=== PATIENT | male | born 1980 | race Caucasian/White ===

== ENCOUNTER 2016-07-07 15:42 | Observation (INO) | payer BC ==
[2016-07-07 15:57] VITALS: BMI 23.6
[2016-07-07 16:07] LABS: BASO # 0.1 K/uL (0.0-0.2); BASO % 0.9 % (0.0-2.0); EOS # 0.8 K/uL (0.0-0.7); EOS % 9.1 % (0.0-4.0); LYMPH # 1.3 K/uL (1.0-4.3); LYMPH % 15.7 % (20.0-40.0); MEAN CELL VOLUME 87.6 fL (80.0-94.0); MEAN CORPUSCULAR HEMOGLOBIN 28.8 pg (27.0-31.0); MEAN CORPUSCULAR HGB CONC 32.9 g/dL (33.0-37.0); MEAN PLATELET VOLUME 6.8 fL (7.2-11.7); MONO # 0.8 K/uL (0.0-0.8); MONO % 9.4 % (0.0-10.0); NRBC % 0.1 % (0.0-2.0); RED CELL DISTRIBUTION WIDTH 15.1 % (11.5-14.5); WHITE BLOOD COUNT 8.3 K/uL (4.8-10.8)
[2016-07-07 16:20] LABS: CHLORIDE 91 mmol/L (98-107); POTASSIUM 4.9 mmol/L (3.6-5.2); SODIUM 137 mmol/L (132-148)
[2016-07-07 16:22] LABS: BILIRUBIN,TOTAL 0.8 mg/dL (0.2-1.3)
[2016-07-07 16:23] LABS: ALB/GLOB RATIO 1.6 (1.0-2.1); ALKALINE PHOSPHATASE 196 U/L (38-126); ALT/SGPT 99 U/L (21-72); AST/SGOT 72 U/L (17-59); BLOOD UREA NITROGEN 78 mg/dL (9-20); CALCIUM 9.7 mg/dl (8.6-10.4); CARBON DIOXIDE 25 mmol/L (22-30); GLUCOSE,RANDOM 109 mg/dL (75-110); TOTAL PROTEIN 7.5 g/dL (6.3-8.3)
[2016-07-07 16:24] LABS: ALCOHOL SERUM < 10 mg/dl (0-10)
--- NOTE | 2016-07-07 17:23 | CT ---
PROCEDURE: CT HEAD WITHOUT CONTRAST. HISTORY: Collapsed and hit head COMPARISON: None available. TECHNIQUE: Axial computed tomography images were obtained through the head/brain without intravenous contrast. Radiation dose: Total exam DLP = 936 mGy-cm. This CT exam was performed using one or more of the following dose reduction techniques: Automated exposure control, adjustment of the mA and/or kV according to patient size, and/or use of iterative reconstruction technique. FINDINGS: HEMORRHAGE: No intracranial hemorrhage. BRAIN: No mass effect or edema. No atrophy or chronic microvascular ischemic changes. VENTRICLES: Unremarkable. No hydrocephalus. CALVARIUM: Unremarkable. PARANASAL SINUSES: Unremarkable as visualized. No significant inflammatory changes. MASTOID AIR CELLS: Unremarkable as visualized. No inflammatory changes. OTHER FINDINGS: None. IMPRESSION: No acute intracranial abnormality. If focal neurologic deficit persists, consider MRI.
[2016-07-07 17:29] LABS: GFR AFRICAN-AMERICAN 3
--- NOTE | 2016-07-07 17:48 | CT ---
CT chest History: Chest pain. Comparison: None available. Technique: Multiple contiguous axial images were performed through the chest without the use of intravenous contrast. Subsequently, sagittal coronal reformatted images were obtained. This CT exam was performed using one or more of the following dose reduction techniques: Automated exposure control, adjustment of the mA and/or kV according to patient size, and/or use of iterative reconstruction technique. Findings: Right lung: Apical pleural thickening. 5 millimeter pulmonary nodule with some questionable central aeration in the right lung apex seen on series 3, image 23. Alternatively, this may represent some confluence of vessels. Clinical correlation. Prominent posterior atelectasis. Left lung: Apical pleural thickening. Posterior atelectasis. Mild lingular atelectasis. Few mild septations seen within the mid trachea, nonspecific. No significant axillary adenopathy. Heterogeneity of the thyroid. No significant mediastinal or hilar lymph nodes. No pleural or pericardial effusion. Free intraperitoneal air seen within the upper abdomen consistent with known peritoneal dialysis. Abdominal ascites. Nodular thickening of the adrenal glands with calcifications. Lobulated calcifications within left kidney which is somewhat diminutive. For example an upper pole calcification measures 8 millimeters. Additional midpole calcification measures 2 millimeters. Degenerative changes in the spine. Bilateral gynecomastia noted. Impression: 5 millimeter pulmonary nodule with some questionable central aeration in the right lung apex seen on series 3, image 23. Alternatively, this may represent some confluence of vessels. Clinical correlation. Free intraperitoneal air seen within the upper abdomen consistent with known peritoneal dialysis. Abdominal ascites. Nodular thickening of the adrenal glands with calcifications. Lobulated calcifications within left kidney which is somewhat diminutive. For example an upper pole calcification measures 8 millimeters. Additional midpole calcification measures 2 millimeters. Bilateral gynecomastia noted.
--- NOTE | 2016-07-07 17:54 | RAD ---
HISTORY: Chest pain s/p CPR COMPARISON: No prior. FINDINGS: LUNGS: Mild venous congestion. PLEURA: No significant pleural effusion identified, no pneumothorax apparent. CARDIOVASCULAR: Normal. OSSEOUS STRUCTURES: No significant abnormalities. VISUALIZED UPPER ABDOMEN: Normal. OTHER FINDINGS: None. IMPRESSION: Mild venous congestion.
[2016-07-07] MEDS ORDERED: Acetaminophen IV 1,000 MG in Premixed IV 1 EA IV ONE (17:56)
--- NOTE | 2016-07-07 18:02 | C.PDOC ---
History Of Present Illness Pt states he crushed tabs of opiate pain pills and snorted them. He was then witnessed to collapse by and EMS were called. BLS found him pulseless and started CPR was started. ALS found him to be in PEA and pinpoint pupils. They gave him 1mg of epinephrine and 2mg of Narcan IV with good response. Upon arrival to the ED, pt is AAOx3. Time Seen by Provider: 07/07/16 15:51 Chief Complaint (Nursing): Cardiac Arrest History Per: Patient, EMS Circumstances: Brought To ED By EMS Arrest Witnessed By: Family () CPR Initiated Prior To MD Arrival?: Yes Down-Time Before ACLS: Mins (few) Treatment Initiated Prior To MD Arrival: Yes: CPR, BVM Ventilations, ACLS Medication Initiation, IV Access Medications Given Prior To MD Arrival: Yes: Epinephrine, Other (Narcan) Past Medical History Reviewed: Historical Data, Nursing Documentation, Vital Signs Vital Signs: Last Vital Signs Temp 97.3 F L 07/07/16 15:49 Pulse 82 07/07/16 18:03 Resp 16 07/07/16 18:03 BP 149/101 H 07/07/16 18:03 Pulse Ox 100 07/07/16 18:10 - Medical History PMH: HTN, End Stage Renal Disease (on peritoneal dialysis) Family History: States: Unknown Family Hx - Social History Hx Alcohol Use: No Hx Substance Use: No - Immunization History Hx Tetanus Toxoid Vaccination: No Hx Influenza Vaccination: No Hx Pneumococcal Vaccination: No Review Of Systems Except As Marked, All Systems Reviewed And Found Negative. Constitutional: Negative for: Fever, Weakness Cardiovascular: Positive for: Chest Pain Respiratory: Negative for: Hemoptysis Gastrointestinal: Negative for: Vomiting, Abdominal Pain Musculoskeletal: Negative for: Neck Pain, Back Pain, Leg Pain Neurological: Negative for: Weakness, Numbness, Seizures, Altered Mental Status , Headache Physical Exam - Physical Exam Appears: No Acute Distress, Chronically Ill Skin: Normal Color, Warm, Dry Head: Swelling (scalp hematoma), No Laceration Eye(s): bilateral: PERRL, EOMI Neck: Normal ROM, No Midline Cervical Tenderness, No Step Off Deformity, Supple Chest: Symmetrical, No Deformity, Tenderness, No Subcutaneous Emphysema Cardiovascular: Rhythm Regular Respiratory: Normal Breath Sounds, No Accessory Muscle Use Gastrointestinal/Abdominal: Soft, No Tenderness, Other (PD dialysis tube in place) Back: No CVA Tenderness, No Vertebral Tenderness Extremity: Normal ROM, No Deformity Neurological/Psych: Oriented x3, Normal Motor, Normal Sensation ED Course And Treatment - Laboratory Results Result Diagrams: 07/07/16 16:03 07/07/16 16:03 Lab Interpretation: Abnormal ECG: Interpreted By Me, Viewed By Me ECG Rhythm: Sinus Rhythm, Nonspecific Changes ECG Interpretation: No Acute Changes Rate From EC O2 Sat by Pulse Oximetry: 100 Pulse Ox Interpretation: Normal - Radiology CXR: Viewed By Me, Read By Radiologist CXR Interpretation: Yes: No Acute Disease - CT Scan/US CT head Other Rad Studies (CT/US): Read By Radiologist, Radiology Report Reviewed CT/US Interpretation: IMPRESSION: No acute intracranial abnormality. CT chest Other Rad Studies (CT/US): Read By Radiologist, Radiology Report Reviewed CT/US Interpretation: Impression: 5 millimeter pulmonary nodule with some questionable central aeration in the right lung apex seen on series 3, image 23. Alternatively, this may represent some confluence of vessels. Clinical correlation. Free intraperitoneal air seen within the upper abdomen consistent with known peritoneal dialysis. Abdominal ascites. Nodular thickening of the adrenal glands with calcifications. Lobulated calcifications within left kidney which is somewhat diminutive. For example an upper pole calcification measures 8 millimeters. Additional midpole calcification measures 2 millimeters. Bilateral gynecomastia noted. Progress Note: Pt remained awake and alert throughout ED stay. - Physician Consult Information Physician Contacted: Karyn Braden (Renal) Outcome Of Conversation: She will give peritoneal dialysis orders once on the floor. Disposition Discussed With : Brandee Alonzo Comment: He accepted pt on his service. Doctor Will See Patient In The: Hospital Counseled Patient/Family Regarding: Studies Performed, Diagnosis - Disposition Disposition: ELOPEMENT - ER ONLY Disposition Time: 18:20 Condition: FAIR - Clinical Impression Clinical Impression: Opioid overdose, Observed collapse due to cardiac arrest, ESRD on peritoneal dialysis
--- NOTE | 2016-07-07 20:12 | CP.PCM.HP ---
History of Present Illness - History of Present Illness History of Present Illness: COMPREHENSIVE HISTORY & PHYSICAL EXAM HPI PT. ADMITTED AFTER CARDIAC CARREST AFTER SNORTING 2 PERCOCETS CRUSHED. CPR WAS DONE WITH EPI AND NARCAN. PT. WOKE UP WITH FULL CEREBRAL FUNCTION. PT. CURRENTLY C/O ATYPICAL CP SEC TO CHEST COMPRESSION. 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 NO OTHER CARDIAC DISEASES IN PAST PAST HIST. PERSONAL HIST: Smoking. N Alcohol. N Allergy N Travel_- . FAMILY HIST : ROS : Constitutional: Negative for weight change, chills, night sweats, fatigue and usage of assist device. Eyes: Negative for redness, swelling, itching, discharge, vision changes, blurry vision, double vision, glaucoma, cataracts, Ears: Negative for hearing loss, ringing, , tinnitus, vertigo Nose: Negative for rhinorrhea, stuffiness, sniffing, itching, postnasal drip, discoloration, nasal congestion and epistaxis. Throat: Negative for throat clearing, sore throat, hoarseness, difficulty swallowing and difficulty speaking. Respiratory: Negative for cough, chest tightness, sputum or phlegm, chronic cough, hemoptysis, wheezing, snoring at night, pleuritic chest pain and daytime somnolence. Cardiovascular: POS for chest pain, NO palpitations, orthopnea, PND, Edema of legs, leg cramps, angina, claudication, , irregular heartbeat, Neurology: Negative for irritability, muscle weakness, numbness and tingling, seizures, tremors, migraines, slurred speech, syncope, memory loss, mood changes , recurrent headaches Gastrointestinal: Negative for difficulty swallowing, diarrhea, constipation, black stools, rectal bleeding, nausea, flatulence, reflux, poor appetite, changes in bowel habits, abdominal pain Genitourinary: Negative for frequent urination, hematuria, discharge, incontinence, urinary retention, frequent UTI, Psychiatric: Negative for depression, anxiety/panic, suicidal tendencies, Musculoskeletal: Negative for swollen joints, back pain, , neck pain, morning stiffness of joints, . Skin: Negative for rash, ulcers, itching, dry skin and pigmented lesions. P/E: Constitutional: Appears stated age and in no apparent distress. Head: Normocephalic. Ears: External ear canals patent without inflammation. Tympanic membranes intact with normal light reflex and landmark. Eyes: Pupils are central, bilaterally equal, symmetrical and reacts to light with normal movements and no icterus or pallor. Nose: External nares are patent. Mucosa is pink Mouth-Throat: Good general appearance and condition. No post-pharyngeal/oropharyngeal erythema and tonsillar hypertrophy. Good dental hygiene. Neck-Lymphatic: Neck is supple with normal ROM, no thyromegaly, lymph nodes or masses. JVD is normal with no carotid bruit. Lungs: Clear to percussion and auscultation with bilateral normal air entry. Cardiovascular: S1 and S2 are normal with no murmurs, gallops and rub. GI Exam: No hepatomegaly. Abdomen is soft and non-tender. No Organomegaly , masses or hernias are evident and bowel sounds are normal and active. Neurology: Higher function and all cranial nerves intact, with no gross motor or sensory deficit. Superficial and deep reflexes are normal with downwards planters. No cerebellar deficit with normal gait. Musculoskeletal: No tender spots with normal curvature of the spine with no swelling or restricted ROM of the small and large joints. Extremities: Homans sign absent. Intact pulses with no pitting edema, calf tenderness or skin color changes. Skin: No rash, eruptions or abnormal skin pigmentation LAB/RADIOLOGY: ASSESMENT : CRADIAC ARREST SEC TO NRCOTIC OVERDOSE WITH FULL RECOVERY PD SEC CRF SEC TO AMYLOIDOSIS PLAN: Present on Admission - Present on Admission Any Indicators Present on Admission: No Past Patient History - Infectious Disease Hx of Infectious Diseases: None - Past Social History Smoking Status: Never Smoked - CARDIAC Hx Hypertension: Yes - RENAL Hx Dialysis: Yes Type of Dialysis Access: Peritoneal Dialysis Date of Last Dialysis Treatment: 07/06/16 - PSYCHIATRIC Hx Substance Use: No Meds Allergies/Adverse Reactions: Allergies Allergy/AdvReac Type Severity Reaction Status Date / Time No Known Allergies Allergy Verified 07/07/16 15:53 Results - Vital Signs Recent Vital Signs: Last Vital Signs Temp 97.3 F L 07/07/16 15:49 Pulse 82 07/07/16 18:03 Resp 16 07/07/16 18:03 BP 149/101 H 07/07/16 18:03 Pulse Ox 100 07/07/16 18:25 - Labs Result Diagrams: 07/08/16 07:15 07/08/16 07:15
[2016-07-08 07:27] LABS: BASO # 0.1 K/uL (0.0-0.2); BASO % 1.1 % (0.0-2.0); EOS # 0.6 K/uL (0.0-0.7); EOS % 7.5 % (0.0-4.0); HEMATOCRIT 28.7 % (35.0-51.0); LYMPH # 1.3 K/uL (1.0-4.3); LYMPH % 15.9 % (20.0-40.0); MEAN CORPUSCULAR HEMOGLOBIN 28.9 pg (27.0-31.0); MEAN CORPUSCULAR HGB CONC 33.2 g/dL (33.0-37.0); MEAN PLATELET VOLUME 6.7 fL (7.2-11.7); MONO # 0.9 K/uL (0.0-0.8); MONO % 10.7 % (0.0-10.0); RED CELL DISTRIBUTION WIDTH 15.1 % (11.5-14.5); WHITE BLOOD COUNT 8.4 K/uL (4.8-10.8)
[2016-07-08 07:45] LABS: POTASSIUM 4.3 mmol/L (3.6-5.2)
[2016-07-08 07:47] LABS: BILIRUBIN,TOTAL 0.7 mg/dL (0.2-1.3)
[2016-07-08 07:48] LABS: ALB/GLOB RATIO 1.4 (1.0-2.1); TOTAL PROTEIN 6.1 g/dL (6.3-8.3)
[2016-07-08 07:49] LABS: CALCIUM 9.2 mg/dl (8.6-10.4)
[2016-07-08] MEDS: Pantoprazole 20 mg EC Tab PO SCH (10:51)
[2016-07-08] MEDS: Multivitamin Vitamin B Complex (Nephro-Vite) Tab PO SCH (10:51)
[2016-07-08] MEDS: NIFEdipine 90 mg ER Tab PO SCH (11:00)
--- NOTE | 2016-07-08 13:55 | CP.PCM.CON ---
History of Present Illness - History of Present Illness History of Present Illness: pt is a 35 yo male with HTN, ESRD on PD who was brought to ER by EMS after cardiac arrest. Pt states he crushed tabs of opiate pain pills and snorted them. He was then witnessed to collapse by and EMS were called. BLS found him pulseless and started CPR was started. ALS found him to be in PEA and pinpoint pupils. They gave him 1mg of epinephrine and 2mg of Narcan IV with good response. Upon arrival to the ED, pt was AAOx3. He was admitted for observation renal consult requested for PD PMHx- ESRD on PD, HTN PSHx- pd catheter placement Social- no smoking, alcohol or drugs Family - no family history of kidney disease Review of Systems - Review of Systems All systems: reviewed and no additional remarkable complaints except Review of Systems: chest soreness Past Patient History - Infectious Disease Hx of Infectious Diseases: None - Past Medical History & Family History Past Medical History?: Yes - Past Social History Smoking Status: Never Smoked - CARDIAC Hx Cardiac Disorders: Yes Hx Hypertension: Yes - PULMONARY Hx Respiratory Disorders: No - NEUROLOGICAL Hx Neurological Disorder: No - HEENT Hx HEENT Problems: No Other/Comment: Wears Eyeglasses and or Contact lenses - RENAL Hx Chronic Kidney Disease: Yes Hx Dialysis: Yes Type of Dialysis Access: Peritoneal Dialysis Date of Last Dialysis Treatment: 07/06/16 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 - ANESTHESIA Hx Anesthesia: Yes Hx Anesthesia Reactions: No Hx Malignant Hyperthermia: No Has any member of the family had a problem w/ anesthesia?: No Meds Allergies/Adverse Reactions: Allergies Allergy/AdvReac Type Severity Reaction Status Date / Time No Known Allergies Allergy Verified 07/07/16 15:53 - Medications Medications: Current Medications Amitriptyline HCl (Elavil) 25 mg PO DAILY [facility] Last Admin: 07/08/16 10:00 Dose: Not Given Carvedilol (Coreg) 25 mg PO BID [facility] Last Admin: 07/08/16 10:00 Dose: Not Given Clonidine HCl (Catapres) 0.2 mg PO DAILY [facility] Last Admin: 07/08/16 10:00 Dose: Not Given Gabapentin (Neurontin) 100 mg PO DAILY [facility] Last Admin: 07/08/16 10:00 Dose: Not Given Losartan Potassium (Cozaar) 100 mg PO DAILY [facility] Last Admin: 07/08/16 10:52 Dose: 100 mg Nifedipine (Procardia Xl) 90 mg PO DAILY [facility] Last Admin: 07/08/16 11:00 Dose: 90 mg Pantoprazole Sodium (Protonix Ec Tab) 20 mg PO DAILY [facility] Last Admin: 07/08/16 10:51 Dose: 20 mg Sevelamer Carbonate (Renvela) 2,400 mg PO TIDAC [facility] Last Admin: 07/08/16 10:51 Dose: 2,400 mg Tramadol HCl (Ultram) 50 mg PO Q8H PRN PRN Reason: pain Last Admin: 07/08/16 10:52 Dose: 50 mg Vitamin B Complex/Vit C/Folic Acid (Nephro-Phil) 1 tab PO DAILY [facility] Last Admin: 07/08/16 10:51 Dose: 1 tab Physical Exam - Constitutional Appears: Well, Non-toxic - Head Exam Head Exam: ATRAUMATIC, NORMAL INSPECTION - Eye Exam Eye Exam: EOMI, PERRL - ENT Exam ENT Exam: Mucous Membranes Moist - Respiratory Exam Respiratory Exam: Clear to Auscultation Bilateral. absent: Rhonchi, Wheezes - Cardiovascular Exam Cardiovascular Exam: REGULAR RHYTHM, +S1, +S2 - GI/Abdominal Exam GI & Abdominal Exam: Normal Bowel Sounds, Soft. absent: Tenderness Additional comments: pd catheter - Extremities Exam Extremities exam: Negative for: calf tenderness, pedal edema - Neurological Exam Neurological exam: Alert, Oriented x3 - Psychiatric Exam Psychiatric exam: Normal Affect, Normal Mood - Skin Skin Exam: Dry, Warm Results - Vital Signs Recent Vital Signs: Last Vital Signs Temp 98.3 F 07/08/16 11:45 Pulse 70 07/08/16 11:45 Resp 20 07/08/16 11:45 BP 143/83 07/08/16 11:45 Pulse Ox 99 07/08/16 11:45 - Labs Result Diagrams: 07/08/16 07:15 07/08/16 07:15 Labs: Laboratory Results - last 24 hr 07/08/16 07:15 WBC 8.4 RBC 3.30 L Hgb 9.5 L Hct 28.7 L MCV 87.0 MCH 28.9 MCHC 33.2 RDW 15.1 H Plt Count 177 MPV 6.7 L Neut % (Auto) 64.8 Lymph % (Auto) 15.9 L [place] % (Auto) 10.7 H Eos % (Auto) 7.5 H Baso % (Auto) 1.1 Neut # 5.5 Lymph # 1.3 [place] # 0.9 H Eos # 0.6 Baso # 0.1 Sodium 136 Potassium 4.3 Chloride 89 L Carbon Dioxide 26 Anion Gap 25 H BUN 84 H Creatinine 20.4 H* Est GFR ( Amer) 3 Est GFR (Non-Af Amer) 3 Random Glucose 89 Calcium 9.2 Total Bilirubin 0.7 AST 40 ALT 75 H D Alkaline Phosphatase 161 H Total Protein 6.1 L Albumin 3.6 Globulin 2.5 Albumin/Globulin Ratio 1.4 Assessment & Plan (1) ESRD on peritoneal dialysis Status: Acute (2) Observed collapse due to cardiac arrest Status: Acute (3) Opioid overdose Status: Acute (4) Hypertension Status: Acute - Assessment and Plan (Free Text) Plan: continue PD pt uses cycler at home on manual pD here in the hospital no signs or symptoms of peritonitis continue antihypertensives stable renal menjivar
--- NOTE | 2016-07-08 14:12 | CP.PCM.PN ---
Subjective - Date & Time of Evaluation Date of Evaluation: 07/08/16 Time of Evaluation: 14:11 - Subjective Subjective: PD STARTED ATYPICAL CP RX. TRAMADOL CARDIAC/NEURO FUNCTION INTAKE Objective - Vital Signs/Intake and Output Vital Signs (last 24 hours): Temp Pulse Resp BP Pulse Ox 98.3 F 70 20 143/83 99 07/08/16 11:45 07/08/16 11:45 07/08/16 11:45 07/08/16 11:45 07/08/16 11:45 - Medications Medications: Current Medications Amitriptyline HCl (Elavil) 25 mg PO DAILY [facility] Last Admin: 07/08/16 10:00 Dose: Not Given Carvedilol (Coreg) 25 mg PO BID [facility] Last Admin: 07/08/16 10:00 Dose: Not Given Clonidine HCl (Catapres) 0.2 mg PO DAILY [facility] Last Admin: 07/08/16 10:00 Dose: Not Given Gabapentin (Neurontin) 100 mg PO DAILY [facility] Last Admin: 07/08/16 10:00 Dose: Not Given Losartan Potassium (Cozaar) 100 mg PO DAILY [facility] Last Admin: 07/08/16 10:52 Dose: 100 mg Nifedipine (Procardia Xl) 90 mg PO DAILY [facility] Last Admin: 07/08/16 11:00 Dose: 90 mg Pantoprazole Sodium (Protonix Ec Tab) 20 mg PO DAILY [facility] Last Admin: 07/08/16 10:51 Dose: 20 mg Sevelamer Carbonate (Renvela) 2,400 mg PO TIDAC [facility] Last Admin: 07/08/16 10:51 Dose: 2,400 mg Tramadol HCl (Ultram) 50 mg PO Q8H PRN PRN Reason: pain Last Admin: 07/08/16 10:52 Dose: 50 mg Vitamin B Complex/Vit C/Folic Acid (Nephro-Phil) 1 tab PO DAILY [facility] Last Admin: 07/08/16 10:51 Dose: 1 tab - Labs Labs: 07/08/16 07:15 07/08/16 07:15 PT 11.7 SECONDS (9.7-12.2) 07/07/16 16:03 INR 1.0 07/07/16 16:03 APTT 35 SECONDS (21-34) H 07/07/16 16:03
[2016-07-09] MEDS: Multivitamin Vitamin B Complex (Nephro-Vite) Tab PO SCH (10:32)
[2016-07-09] MEDS: NIFEdipine 90 mg ER Tab PO SCH (10:33)
[2016-07-09] MEDS: Pantoprazole 20 mg EC Tab PO SCH (10:34)
--- NOTE | 2016-07-09 11:01 | CP.PCM.PN ---
Subjective - Date & Time of Evaluation Date of Evaluation: 07/09/16 Time of Evaluation: 10:58 - Subjective Subjective: pt is a 35 yo male with HTN, ESRD on PD who was brought to ER by EMS after cardiac arrest. Pt states he crushed tabs of opiate pain pills and snorted them. He was then witnessed to collapse by and EMS were called. BLS found him pulseless and started CPR was started. ALS found him to be in PEA and pinpoint pupils. They gave him 1mg of epinephrine and 2mg of Narcan IV with good response. Upon arrival to the ED, pt was AAOx3. He was admitted for observation renal consult requested for PD PMHx- ESRD on PD, HTN PSHx- pd catheter placement Social- no smoking, alcohol or drugs Family - no family history of kidney disease Doing PD well; claims did 14L exchanges / 24hrs Creat >20mg %- pt needs extra exchanges Neg balance around 1400ml BP stable Reviewed labs c/o chest pains from compressions Otherwise no SOB, N, V, diarrhea, F, chills Objective - Vital Signs/Intake and Output Vital Signs (last 24 hours): Temp Pulse Resp BP Pulse Ox 97.8 F 78 20 132/78 96 07/09/16 10:15 07/09/16 10:15 07/09/16 10:15 07/09/16 10:15 07/09/16 10:15 Intake and Output: 07/09/16 07/09/16 06:59 18:59 Intake Total 600 Balance 600 - Medications Medications: Current Medications Amitriptyline HCl (Elavil) 25 mg PO HS [facility] Carvedilol (Coreg) 25 mg PO BID [facility] Last Admin: 07/08/16 17:38 Dose: 25 mg Clonidine HCl (Catapres) 0.2 mg PO HS [facility] Gabapentin (Neurontin) 100 mg PO DAILY [facility] Last Admin: 07/08/16 10:00 Dose: Not Given Losartan Potassium (Cozaar) 100 mg PO DAILY [facility] Last Admin: 07/09/16 10:34 Dose: 100 mg Nifedipine (Procardia Xl) 90 mg PO DAILY [facility] Last Admin: 07/09/16 10:33 Dose: 90 mg Pantoprazole Sodium (Protonix Ec Tab) 20 mg PO DAILY [facility] Last Admin: 07/09/16 10:34 Dose: 20 mg Sevelamer Carbonate (Renvela) 2,400 mg PO TIDAC [facility] Last Admin: 07/09/16 10:33 Dose: 2,400 mg Tramadol HCl (Ultram) 50 mg PO Q8H PRN PRN Reason: pain Last Admin: 07/09/16 10:32 Dose: 50 mg Vitamin B Complex/Vit C/Folic Acid (Nephro-Phil) 1 tab PO DAILY [facility] Last Admin: 07/09/16 10:32 Dose: 1 tab - Labs Labs: 07/08/16 07:15 07/08/16 07:15 PT 11.7 SECONDS (9.7-12.2) 07/07/16 16:03 INR 1.0 07/07/16 16:03 APTT 35 SECONDS (21-34) H 07/07/16 16:03 - Constitutional Appears: No Acute Distress, Chronically Ill - Head Exam Head Exam: ATRAUMATIC, NORMAL INSPECTION - Eye Exam Eye Exam: EOMI, Normal appearance - Neck Exam Neck Exam: Normal Inspection. absent: Tenderness - Respiratory Exam Respiratory Exam: Clear to Ausculation Bilateral, NORMAL BREATHING PATTERN - Cardiovascular Exam Cardiovascular Exam: REGULAR RHYTHM, +S1 - GI/Abdominal Exam GI & Abdominal Exam: Soft. absent: Tenderness - Extremities Exam Extremities Exam: Normal Inspection. absent: Tenderness - Neurological Exam Neurological Exam: Alert, CN II-XII Intact - Skin Skin Exam: Dry, Warm Assessment and Plan (1) ESRD on peritoneal dialysis Status: Acute (2) Hypertension Status: Acute (3) Observed collapse due to cardiac arrest Status: Acute (4) Opioid overdose Status: Acute - Assessment and Plan (Free Text) Plan: continue same PD Monitor BP Add ESAs
--- NOTE | 2016-07-09 11:41 | CARD ---
APPROVED REPORT EKG Measurement Heart [id number] <Conclusion> Normal sinus rhythm Normal ECG
--- NOTE | 2016-07-09 13:46 | CP.PCM.DIS ---
Provider - Provider Date of Admission: 07/07/16 18:25 Attending physician: Brandee Alonzo MD Time Spent in preparation of Discharge (in minutes): 30 Hospital Course - Lab Results Lab Results: Most Recent Lab Values WBC 8.4 K/uL (4.8-10.8) 07/08/16 07:15 RBC 3.30 Mil/uL (4.40-5.90) L 07/08/16 07:15 Hgb 9.5 g/dL (12.0-18.0) L 07/08/16 07:15 Hct 28.7 % (35.0-51.0) L 07/08/16 07:15 MCV 87.0 fL (80.0-94.0) 07/08/16 07:15 MCH 28.9 pg (27.0-31.0) 07/08/16 07:15 MCHC 33.2 g/dL (33.0-37.0) 07/08/16 07:15 RDW 15.1 % (11.5-14.5) H 07/08/16 07:15 Plt Count 177 K/uL (130-400) 07/08/16 07:15 MPV 6.7 fL (7.2-11.7) L 07/08/16 07:15 Neut % (Auto) 64.8 % (50.0-75.0) 07/08/16 07:15 Lymph % (Auto) 15.9 % (20.0-40.0) L 07/08/16 07:15 Gosper % (Auto) 10.7 % (0.0-10.0) H 07/08/16 07:15 Eos % (Auto) 7.5 % (0.0-4.0) H 07/08/16 07:15 Baso % (Auto) 1.1 % (0.0-2.0) 07/08/16 07:15 Neut # 5.5 K/uL (1.8-7.0) 07/08/16 07:15 Lymph # 1.3 K/uL (1.0-4.3) 07/08/16 07:15 Gosper # 0.9 K/uL (0.0-0.8) H 07/08/16 07:15 Eos # 0.6 K/uL (0.0-0.7) 07/08/16 07:15 Baso # 0.1 K/uL (0.0-0.2) 07/08/16 07:15 PT 11.7 SECONDS (9.7-12.2) 07/07/16 16:03 INR 1.0 07/07/16 16:03 APTT 35 SECONDS (21-34) H 07/07/16 16:03 Sodium 136 mmol/L (132-148) 07/08/16 07:15 Potassium 4.3 mmol/L (3.6-5.2) 07/08/16 07:15 Chloride 89 mmol/L (98-107) L 07/08/16 07:15 Carbon Dioxide 26 mmol/L (22-30) 07/08/16 07:15 Anion Gap 25 (10-20) H 07/08/16 07:15 BUN 84 mg/dL (9-20) H 07/08/16 07:15 Creatinine 20.4 MG/DL (0.8-1.5) H* 07/08/16 07:15 Est GFR ( Amer) 3 07/08/16 07:15 Est GFR (Non-Af Amer) 3 07/08/16 07:15 Random Glucose 89 mg/dL (75-110) 07/08/16 07:15 Calcium 9.2 mg/dl (8.6-10.4) 07/08/16 07:15 Total Bilirubin 0.7 mg/dL (0.2-1.3) 07/08/16 07:15 AST 40 U/L (17-59) 07/08/16 07:15 ALT 75 U/L (21-72) H D 07/08/16 07:15 Alkaline Phosphatase 161 U/L (38-126) H 07/08/16 07:15 Total Creatine Kinase 43 U/L (55-170) L 07/09/16 07:30 CK-MB (Mass) 0.40 ng/mL (0.0-3.38) 07/09/16 07:30 Troponin I, Quant 0.0330 ng/mL (0.00-0.120) 07/09/16 07:30 Total Protein 6.1 g/dL (6.3-8.3) L 07/08/16 07:15 Albumin 3.6 g/dL (3.5-5.0) 07/08/16 07:15 Globulin 2.5 gm/dL (2.2-3.9) 07/08/16 07:15 Albumin/Globulin Ratio 1.4 (1.0-2.1) 07/08/16 07:15 Alcohol, Quantitative < 10 mg/dl (0-10) 07/07/16 16:03 - Hospital Course Hospital Course: PT. ADMITTED AFTER CARDIAC CARREST AFTER SNORTING 2 PERCOCETS CRUSHED. CPR WAS DONE WITH EPI AND NARCAN. PT. WOKE UP WITH FULL CEREBRAL FUNCTION. PT. CURRENTLY C/O ATYPICAL CP SEC TO CHEST COMPRESSION. 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 NO OTHER CARDIAC DISEASES IN PAST PT WAS OBSERVED IN HOSP. THERE WAS NO FURTHER ANY [id number] PROBLEMS HAD CP SEC TO CHEST COMPRESSION TNI WERE NEG PT D/C HOME COUNSELLED TO F/U WITH PSYCH Discharge Exam - Head Exam Head Exam: ATRAUMATIC, NORMAL INSPECTION Discharge Plan - Follow Up Plan Condition: GOOD Disposition: HOME/ ROUTINE
--- NOTE | 2016-07-09 18:43 | CARD ---
APPROVED REPORT EKG Measurement Heart [id number] <Conclusion> Normal sinus rhythm Nonspecific ST/T changes inferior leads
[2016-07-10] MEDS: NIFEdipine 90 mg ER Tab PO SCH (09:30)
[2016-07-10] MEDS: Multivitamin Vitamin B Complex (Nephro-Vite) Tab PO SCH (09:31)
[2016-07-10] MEDS ORDERED: Docusate-Senna 50 mg-8.6 mg Tab PO SCH (10:00)
[2016-07-10] MEDS: Pantoprazole 20 mg EC Tab PO SCH (11:20)
--- NOTE | 2016-07-10 11:40 | CP.PCM.PN ---
Subjective - Date & Time of Evaluation Date of Evaluation: 07/10/16 Time of Evaluation: 11:37 - Subjective Subjective: PD going well BP controlled No new chemistries Possible discharge noted Objective - Vital Signs/Intake and Output Vital Signs (last 24 hours): Temp Pulse Resp BP Pulse Ox 98.1 F 71 20 146/81 97 07/10/16 07:00 07/10/16 07:00 07/10/16 07:00 07/10/16 09:30 07/10/16 07:00 - Medications Medications: Current Medications Amitriptyline HCl (Elavil) 25 mg PO [facility] Last Admin: 07/09/16 22:24 Dose: 25 mg Carvedilol (Coreg) 25 mg PO BID [facility] Last Admin: 07/10/16 09:30 Dose: 25 mg Clonidine HCl (Catapres) 0.2 mg PO [facility] Last Admin: 07/09/16 22:24 Dose: 0.2 mg Docusate Sodium (Colace) 100 mg PO DAILY [facility] Last Admin: 07/10/16 11:16 Dose: Not Given Epoetin Serjio (Procrit) 4,000 unit [facility] Gabapentin (Neurontin) 100 mg PO DAILY [facility] Last Admin: 07/10/16 10:54 Dose: 100 mg Losartan Potassium (Cozaar) 100 mg PO DAILY [facility] Last Admin: 07/10/16 09:31 Dose: 100 mg Nifedipine (Procardia Xl) 90 mg PO DAILY [facility] Last Admin: 07/10/16 09:30 Dose: 90 mg Pantoprazole Sodium (Protonix Ec Tab) 20 mg PO DAILY [facility] Last Admin: 07/10/16 11:20 Dose: 20 mg Senna/Docusate Sodium (Senokot S 50 Mg-8.6 Mg) 1 tab PO DAILY [facility] Last Admin: 07/10/16 11:20 Dose: Not Given Sevelamer Carbonate (Renvela) 2,400 mg PO TIDAC [facility] Last Admin: 07/10/16 08:39 Dose: 2,400 mg Tramadol HCl (Ultram) 50 mg PO Q8H PRN PRN Reason: pain Last Admin: 07/09/16 10:32 Dose: 50 mg Vitamin B Complex/Vit C/Folic Acid (Nephro-Phil) 1 tab PO DAILY [facility] Last Admin: 07/10/16 09:31 Dose: 1 tab - Labs Labs: PT 11.7 SECONDS (9.7-12.2) 07/07/16 16:03 INR 1.0 07/07/16 16:03 APTT 35 SECONDS (21-34) H 07/07/16 16:03 - Constitutional Appears: No Acute Distress, Chronically Ill - Head Exam Head Exam: ATRAUMATIC, NORMAL INSPECTION - Eye Exam Eye Exam: EOMI, Normal appearance - Neck Exam Neck Exam: Normal Inspection. absent: Tenderness - Respiratory Exam Respiratory Exam: Clear to Ausculation Bilateral, NORMAL BREATHING PATTERN - Cardiovascular Exam Cardiovascular Exam: REGULAR RHYTHM, +S1 - GI/Abdominal Exam GI & Abdominal Exam: Soft. absent: Tenderness - Extremities Exam Extremities Exam: Normal Inspection. absent: Pedal Edema - Neurological Exam Neurological Exam: Alert, CN II-XII Intact - Skin Skin Exam: Dry, Warm Assessment and Plan (1) ESRD on peritoneal dialysis Status: Acute (2) Hypertension Status: Acute (3) Observed collapse due to cardiac arrest Status: Acute (4) Opioid overdose Status: Acute - Assessment and Plan (Free Text) Plan: Same PD Patient will see private garment finisher upon discharge
--- NOTE | 2016-07-10 13:31 | CP.PCM.PN ---
Subjective - Date & Time of Evaluation Date of Evaluation: 07/10/16 Time of Evaluation: 13:29 - Subjective Subjective: DISCHARGE ON HOLD PT IS UNABLE TO WALK TO BATHROOM PT EVAL DONE D/W AT LENGTH PT'S CARE MAY NEED [facility] PD WORKING WELL Objective - Vital Signs/Intake and Output Vital Signs (last 24 hours): Temp Pulse Resp BP Pulse Ox 98.1 F 67 20 146/81 94 L 07/10/16 07:00 07/10/16 12:01 07/10/16 07:00 07/10/16 09:30 07/10/16 12:01 - Medications Medications: Current Medications Amitriptyline HCl (Elavil) 25 mg PO HS [facility] Last Admin: 07/09/16 22:24 Dose: 25 mg Carvedilol (Coreg) 25 mg PO BID [facility] Last Admin: 07/10/16 09:30 Dose: 25 mg Clonidine HCl (Catapres) 0.2 mg PO [facility] Last Admin: 07/09/16 22:24 Dose: 0.2 mg Docusate Sodium (Colace) 100 mg PO DAILY [facility] Last Admin: 07/10/16 11:16 Dose: Not Given Epoetin Serjio (Procrit) 4,000 unit SC F [facility] Gabapentin (Neurontin) 100 mg PO DAILY [facility] Last Admin: 07/10/16 10:54 Dose: 100 mg Losartan Potassium (Cozaar) 100 mg PO DAILY [facility] Last Admin: 07/10/16 09:31 Dose: 100 mg Nifedipine (Procardia Xl) 90 mg PO DAILY [facility] Last Admin: 07/10/16 09:30 Dose: 90 mg Pantoprazole Sodium (Protonix Ec Tab) 20 mg PO DAILY [facility] Last Admin: 07/10/16 11:20 Dose: 20 mg Senna/Docusate Sodium (Senokot S 50 Mg-8.6 Mg) 1 tab PO DAILY [facility] Last Admin: 07/10/16 11:20 Dose: Not Given Sevelamer Carbonate (Renvela) 2,400 mg PO TIDAC [facility] Last Admin: 07/10/16 13:23 Dose: Not Given Tramadol HCl (Ultram) 50 mg PO Q8H PRN PRN Reason: pain Last Admin: 07/09/16 10:32 Dose: 50 mg Vitamin B Complex/Vit C/Folic Acid (Nephro-Phil) 1 tab PO DAILY [facility] Last Admin: 07/10/16 09:31 Dose: 1 tab - Labs Labs: PT 11.7 SECONDS (9.7-12.2) 07/07/16 16:03 INR 1.0 07/07/16 16:03 APTT 35 SECONDS (21-34) H 07/07/16 16:03
--- NOTE | 2016-07-10 17:48 | RAD ---
PROCEDURE: Radiographs of the chest and bilateral ribs HISTORY: rib fx. COMPARISON: CT chest without contrast performed 07/07/16, chest x-ray performed 07/07/16 TECHNIQUE: Frontal radiograph of the chest and multiple oblique radiographs of the bilateral ribs were obtained. FINDINGS: RIGHT RIBS: No fracture or focal lesion visualized. LEFT RIBS: No appreciable displaced fracture deformity. LUNGS: Linear atelectasis, left lung base. No focal consolidation. Please note that chest x-ray has limited sensitivity for the detection of pulmonary masses. PLEURA: No significant pleural effusion. No definite pneumothorax. CARDIOVASCULAR: Heart size appears within normal limits. OTHER FINDINGS: Curvilinear lucencies beneath bilateral hemidiaphragm compatible with known free intraperitoneal air demonstrated on CT of the chest performed 07/07/16. IMPRESSION: No appreciable displaced rib fracture. Linear atelectasis, left lung base. Findings compatible with known intraperitoneal abdominal free air as seen on CT of the chest performed 07/07/16.
[2016-07-10] MEDS: Docusate-Senna 50 mg-8.6 mg Tab PO SCH (21:46)
[2016-07-11] MEDS: Multivitamin Vitamin B Complex (Nephro-Vite) Tab PO SCH (10:04)
[2016-07-11] MEDS: Pantoprazole 20 mg EC Tab PO SCH (10:08)
[2016-07-11] MEDS: NIFEdipine 90 mg ER Tab PO SCH (10:14)
[2016-07-11] MEDS: Epoetin Alfa 4000 UNIT/ML Inj SC SCH (10:31)
--- NOTE | 2016-07-11 13:27 | CP.PCM.PN ---
Subjective - Date & Time of Evaluation Date of Evaluation: 07/11/16 Time of Evaluation: 13:26 - Subjective Subjective: PT EVAL DONE D/W AT LENGTH PT'S CARE MAY NEED [employer] PD WORKING WELL SIGNIFICANT AMOUNT OF CHEST ON MOTION RIB SERIES NEG FORM FRACTURE Objective - Vital Signs/Intake and Output Vital Signs (last 24 hours): Temp Pulse Resp BP Pulse Ox 98.2 F 68 20 123/76 93 L 07/11/16 09:34 07/11/16 12:06 07/11/16 09:34 07/11/16 10:04 07/11/16 12:06 - Medications Medications: Current Medications Amitriptyline HCl (Elavil) 25 mg PO HS [facility] Last Admin: 07/10/16 21:46 Dose: 25 mg Carvedilol (Coreg) 25 mg PO BID [facility] Last Admin: 07/11/16 10:04 Dose: 25 mg Clonidine HCl (Catapres) 0.2 mg PO [facility] Last Admin: 07/10/16 21:45 Dose: Not Given Docusate Sodium (Colace) 100 mg PO [facility] Last Admin: 07/10/16 21:46 Dose: 100 mg Epoetin Serjio (Procrit) 4,000 unit SC MWF [facility] Last Admin: 07/11/16 10:31 Dose: 4,000 unit Gabapentin (Neurontin) 100 mg PO BID [facility] Last Admin: 07/11/16 11:27 Dose: 100 mg Losartan Potassium (Cozaar) 100 mg PO DAILY [facility] Last Admin: 07/11/16 10:04 Dose: 100 mg Nifedipine (Procardia Xl) 90 mg PO DAILY [facility] Last Admin: 07/11/16 10:14 Dose: 90 mg Pantoprazole Sodium (Protonix Ec Tab) 20 mg PO DAILY [facility] Last Admin: 07/11/16 10:08 Dose: 20 mg Senna/Docusate Sodium (Senokot S 50 Mg-8.6 Mg) 1 tab PO HS [facility] Last Admin: 07/10/16 21:46 Dose: 1 tab Sevelamer Carbonate (Renvela) 800 mg PO TIDCC [facility] Last Admin: 07/11/16 10:08 Dose: 800 mg Tramadol HCl (Ultram) 50 mg PO Q8H PRN PRN Reason: pain Last Admin: 07/11/16 04:01 Dose: 50 mg Vitamin B Complex/Vit C/Folic Acid (Nephro-Phil) 1 tab PO DAILY [facility] Last Admin: 07/11/16 10:04 Dose: 1 tab - Labs Labs: PT 11.7 SECONDS (9.7-12.2) 07/07/16 16:03 INR 1.0 07/07/16 16:03 APTT 35 SECONDS (21-34) H 07/07/16 16:03
--- NOTE | 2016-07-11 14:09 | CP.PCM.PN ---
Subjective - Date & Time of Evaluation Date of Evaluation: 07/11/16 Time of Evaluation: 14:07 - Subjective Subjective: PD going well Only c/o chest pains from previous chest compressions BP stable No new labs available No SOB, N, V, diarrhea Objective - Vital Signs/Intake and Output Vital Signs (last 24 hours): Temp Pulse Resp BP Pulse Ox 98.2 F 68 20 123/76 93 L 07/11/16 09:34 07/11/16 12:06 07/11/16 09:34 07/11/16 10:04 07/11/16 12:06 - Medications Medications: Current Medications Amitriptyline HCl (Elavil) 25 mg PO HS [facility] Last Admin: 07/10/16 21:46 Dose: 25 mg Carvedilol (Coreg) 25 mg PO BID [facility] Last Admin: 07/11/16 10:04 Dose: 25 mg Clonidine HCl (Catapres) 0.2 mg PO [facility] Last Admin: 07/10/16 21:45 Dose: Not Given Docusate Sodium (Colace) 100 [address] [facility] Last Admin: 07/10/16 21:46 Dose: 100 mg Epoetin Serjio (Procrit) 4,000 unit SC MWF [facility] Last Admin: 07/11/16 10:31 Dose: 4,000 unit Gabapentin (Neurontin) 100 mg PO BID [facility] Last Admin: 07/11/16 11:27 Dose: 100 mg Losartan Potassium (Cozaar) 100 mg PO DAILY [facility] Last Admin: 07/11/16 10:04 Dose: 100 mg Nifedipine (Procardia Xl) 90 mg PO DAILY [facility] Last Admin: 07/11/16 10:14 Dose: 90 mg Pantoprazole Sodium (Protonix Ec Tab) 20 mg PO DAILY [facility] Last Admin: 07/11/16 10:08 Dose: 20 mg Senna/Docusate Sodium (Senokot S 50 Mg-8.6 Mg) 1 tab PO HS [facility] Last Admin: 07/10/16 21:46 Dose: 1 tab Sevelamer Carbonate (Renvela) 800 mg PO TIDCC [facility] Last Admin: 07/11/16 10:08 Dose: 800 mg Tramadol HCl (Ultram) 50 mg PO Q8H PRN PRN Reason: pain Last Admin: 07/11/16 04:01 Dose: 50 mg Vitamin B Complex/Vit C/Folic Acid (Nephro-Phil) 1 tab PO DAILY [facility] Last Admin: 07/11/16 10:04 Dose: 1 tab - Labs Labs: PT 11.7 SECONDS (9.7-12.2) 07/07/16 16:03 INR 1.0 07/07/16 16:03 APTT 35 SECONDS (21-34) H 07/07/16 16:03 - Constitutional Appears: No Acute Distress, Chronically Ill - Head Exam Head Exam: ATRAUMATIC, NORMAL INSPECTION - Eye Exam Eye Exam: EOMI, Normal appearance - Neck Exam Neck Exam: Normal Inspection. absent: Tenderness - Respiratory Exam Respiratory Exam: Clear to Ausculation Bilateral, NORMAL BREATHING PATTERN - Cardiovascular Exam Cardiovascular Exam: REGULAR RHYTHM, +S1 - GI/Abdominal Exam GI & Abdominal Exam: Soft. absent: Tenderness - Extremities Exam Extremities Exam: Normal Inspection. absent: Tenderness - Neurological Exam Neurological Exam: Alert, CN II-XII Intact - Skin Skin Exam: Dry, Warm Assessment and Plan (1) ESRD on peritoneal dialysis Status: Acute (2) Hypertension Status: Acute (3) Observed collapse due to cardiac arrest Status: Acute (4) Opioid overdose Status: Acute - Assessment and Plan (Free Text) Plan: Same PD Will follow up with outpatient plunger scoop operator
--- NOTE | 2016-07-11 15:41 | PCM.PSYCH ---
Initial Psychiatric Evaluation - Initial Psychiatric Evaluation Type of Admission: Voluntary Legal Status: Capacity Chief Complaint (in patient's own words): "I overdosed on pain killers" Patient's Reaction to Hospitalization: Positive History of Present Illness and Precipitating Events: The pt is seen, chart reviewed, case discussed. Pt is a 35 year old male. He is and lives with his and one year old in [place], [place]. He is on a leave of absence from his employment. 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 Pt reports that he came in on Saturday to the ER because of an oxycodone overdose that lead to a cardiac arrest. Pt reports that he took one 30 mg pill of oxycodone. Pt admits to abusing oxycodone 2 years ago. Pt denies using other drugs, smoking cigarettes or drinking alcohol. Pt currently complains of dyspnea and chest pain. Chest pain is from CPR resuscitation during cardiac arrest. Pt denies any suicidal thoughts and psychiatric admissions. Pt's mood today is low and admits to feeling depressed and hopeless because of his medical condition and leave of absence. Currently, he sees a psychologist in [place], [place]. His plan is to go back to work as a supervisor fertilizer and to attend an outpatient program. Past Psychiatric History: Denies Past Drug History: Opioid abuse 2 years ago Family Psychiatric History: Denies Past Medical History: Amyloidosis, migraines, dialysis weekly Current Medications: Active Medications Generic Name Dose Route Start Last Admin Trade Name Freq PRN Reason Stop Dose Admin Amitriptyline HCl 25 mg 07/09/16 22:00 07/10/16 21:46 Elavil PO 25 mg HS [facility] Administration Carvedilol 25 mg 07/07/16 23:30 07/11/16 10:04 Coreg PO 25 mg BID [facility] Administration Clonidine HCl 0.2 mg 07/09/16 22:00 07/10/16 21:45 Catapres PO Not Given HS [facility] Docusate Sodium 100 mg 07/10/16 22:00 07/10/16 21:46 Colace PO 100 mg HS [facility] Administration Epoetin Serjio 4,000 unit 07/11/16 09:00 07/11/16 10:31 Procrit SC 4,000 unit MWF [facility] Administration Gabapentin 100 mg 07/11/16 11:00 07/11/16 11:27 Neurontin PO 100 mg BID [facility] Administration Losartan Potassium 100 mg 07/08/16 10:00 07/11/16 10:04 Cozaar PO 100 mg DAILY [facility] Administration Nifedipine 90 mg 07/08/16 10:00 07/11/16 10:14 Procardia Xl PO 90 mg DAILY [facility] Administration Pantoprazole Sodium 20 mg 07/08/16 10:00 07/11/16 10:08 Protonix Ec Tab PO 20 mg DAILY [facility] Administration Senna/Docusate Sodium 1 tab 07/10/16 22:00 07/10/16 21:46 Senokot S 50 Mg-8.6 Mg PO 1 tab HS [facility] Administration Sevelamer Carbonate 800 mg 07/11/16 08:00 07/11/16 15:39 Renvela PO Not Given TIDCC [facility] Tramadol HCl 50 mg 07/08/16 10:23 07/11/16 04:01 Ultram PO 50 mg Q8H PRN Administration pain Vitamin B Complex/Vit C/Folic Acid 1 tab 07/08/16 10:00 07/11/16 10:04 Nephro-Phil PO 1 tab DAILY [facility] Administration Past Psychiatric History - Past Psychiatric History Pertinent Medical Hx (Current Medical&Sleep Prob, Allergies): Allergies Allergy/AdvReac Type Severity Reaction Status Date / Time No Known Allergies Allergy Verified 07/07/16 15:53 Amitriptyline [Elavil] 1 tab PO DAILY 07/07/16 Carvedilol [Coreg] 25 mg PO BID 07/07/16 Gabapentin [Neurontin] 100 mg PO DAILY 07/07/16 Losartan [Cozaar] 100 mg PO DAILY 07/07/16 NIFEdipine ER [Procardia XL] 90 mg PO DAILY 07/07/16 Omeprazole 20 mg PO DAILY 07/07/16 Sevelamer Carbonate [Renvela] 800 mg PO BID 07/07/16 Sevelamer Carbonate [Renvela] 800 mg PO TID 07/07/16 Vit B Cmplx No3/FA/C/Biot/Zinc [Nephplex Rx Tablet] 1 each PO DAILY 07/07/16 cloNIDine [clonidine HCl] 0.2 mg PO DAILY 07/07/16 Review of Systems - Cardiovascular Cardiovascular: Chest Pain (Due to CPR ) - Respiratory Respiratory: Dyspnea - Psychiatric Psychiatric: Anxiety, Depression, Hopelessness Mental Status Examination - Personal Presentation Personal Presentation: Looks stated age - Affect Affect: Broad - Motor Activity Motor Activity: Calm - Reliability in Providing Information Reliability in Providing Information: Good - Speech Speech: Organized - Mood Mood: Depressed, Anxious - Formal Thought Process Formal Thought Process: No Impairment - Obsessions/Compulsions Obsessions: No Compulsions: No - Cognitive Functions Orientation: Person, Place, Situation, Time Sensorium: Alert Attention/Concentration: Attentive Judgement: Intact, as evidence by: Insight regarding need for hospitalization Memory: Recent intact, as evidence by: Other, Remote intact, as evidenced by: Other Additional comments: Pt was able to recall recent events of hospitalization and past life events DSM 5 DX - DSM 5 DSM 5 Diagnosis: Opioid Use Disorder-unspecified 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
[2016-07-11] MEDS: Home Med 1 UNIT PO SCH ×3 (16:19→22:18)
[2016-07-11] MEDS: Docusate-Senna 50 mg-8.6 mg Tab PO SCH (22:37)
[2016-07-12] MEDS: Multivitamin Vitamin B Complex (Nephro-Vite) Tab PO SCH (10:21)
[2016-07-12] MEDS: NIFEdipine 90 mg ER Tab PO SCH (10:21)
[2016-07-12] MEDS: Pantoprazole 20 mg EC Tab PO SCH (10:21)
[2016-07-12] MEDS: Home Med 1 UNIT PO SCH ×2 (10:22→13:11)
--- NOTE | 2016-07-12 10:56 | CP.PCM.PN ---
Subjective - Date & Time of Evaluation Date of Evaluation: 07/12/16 Time of Evaluation: 10:53 - Subjective Subjective: PD going well BP low- patient aware Only c/o chest pains from prior chest compressions No new labs to review Objective - Vital Signs/Intake and Output Vital Signs (last 24 hours): Temp Pulse Resp BP Pulse Ox 97.8 F 66 19 97/61 L 93 L 07/12/16 08:00 07/12/16 08:00 07/12/16 08:00 07/12/16 10:22 07/12/16 08:00 - Medications Medications: Current Medications Amitriptyline HCl (Elavil) 25 mg PO HS [facility] Last Admin: 07/11/16 22:37 Dose: 25 mg Carvedilol (Coreg) 25 mg PO BID [facility] Last Admin: 07/12/16 10:22 Dose: Not Given Clonidine HCl (Catapres) 0.2 mg PO HS [facility] Last Admin: 07/11/16 22:37 Dose: 0.2 mg Docusate Sodium (Colace) 100 mg PO HS [facility] Last Admin: 07/11/16 22:37 Dose: 100 mg Epoetin Serjio (Procrit) 4,000 unit SC MWF [facility] Last Admin: 07/11/16 10:31 Dose: 4,000 unit Gabapentin (Neurontin) 100 mg PO Q12 [facility] Last Admin: 07/12/16 10:47 Dose: 100 mg Home Med (Home Med) 3 unit PO TID [facility] Last Admin: 07/12/16 10:22 Dose: Not Given Losartan Potassium (Cozaar) 100 mg PO DAILY [facility] Last Admin: 07/12/16 10:22 Dose: Not Given Nifedipine (Procardia Xl) 90 mg PO DAILY [facility] Last Admin: 07/12/16 10:21 Dose: 90 mg Pantoprazole Sodium (Protonix Ec Tab) 20 mg PO DAILY [facility] Last Admin: 07/12/16 10:21 Dose: 20 mg Senna/Docusate Sodium (Senokot S 50 Mg-8.6 Mg) 1 tab PO HS [facility] Last Admin: 07/11/16 22:37 Dose: 1 tab Tramadol HCl (Ultram) 50 mg PO Q8H PRN PRN Reason: pain Last Admin: 07/11/16 04:01 Dose: 50 mg Vitamin B Complex/Vit C/Folic Acid (Nephro-Phil) 1 tab PO DAILY [facility] Last Admin: 07/12/16 10:21 Dose: 1 tab - Labs Labs: PT 11.7 SECONDS (9.7-12.2) 07/07/16 16:03 INR 1.0 07/07/16 16:03 APTT 35 SECONDS (21-34) H 07/07/16 16:03 - Constitutional Appears: No Acute Distress, Chronically Ill - Head Exam Head Exam: ATRAUMATIC, NORMAL INSPECTION - Eye Exam Eye Exam: EOMI, Normal appearance - Neck Exam Neck Exam: Normal Inspection - Respiratory Exam Respiratory Exam: Clear to Ausculation Bilateral, NORMAL BREATHING PATTERN - Cardiovascular Exam Cardiovascular Exam: REGULAR RHYTHM, +S1 - GI/Abdominal Exam GI & Abdominal Exam: Soft. absent: Tenderness - Extremities Exam Extremities Exam: Normal Inspection. absent: Tenderness - Neurological Exam Neurological Exam: Alert, CN II-XII Intact - Skin Skin Exam: Dry, Warm Assessment and Plan (1) ESRD on peritoneal dialysis Status: Acute (2) Hypertension Status: Acute (3) Observed collapse due to cardiac arrest Status: Acute (4) Opioid overdose Status: Acute - Assessment and Plan (Free Text) Plan: Monitor BP Same PD Possible discharge soon Labs and PD follow up can be done as outpatient
[2016-07-12 11:37] LABS: BASO # 0.1 K/uL (0.0-0.2); EOS # 0.6 K/uL (0.0-0.7); EOS % 8.2 % (0.0-4.0); HEMATOCRIT 35.1 % (35.0-51.0); LYMPH # 1.2 K/uL (1.0-4.3); LYMPH % 17.4 % (20.0-40.0); MEAN CELL VOLUME 87.8 fL (80.0-94.0); MEAN CORPUSCULAR HEMOGLOBIN 28.4 pg (27.0-31.0); MEAN CORPUSCULAR HGB CONC 32.4 g/dL (33.0-37.0); MONO % 15.2 % (0.0-10.0); RED CELL DISTRIBUTION WIDTH 15.6 % (11.5-14.5); WHITE BLOOD COUNT 6.8 K/uL (4.8-10.8)
[2016-07-12 11:42] LABS: POTASSIUM 4.6 mmol/L (3.6-5.2)
[2016-07-12 11:46] LABS: CALCIUM 10.6 mg/dl (8.6-10.4)
--- NOTE | 2016-07-12 13:40 | CP.PCM.DIS ---
Provider - Provider Date of Admission: 07/09/16 17:19 Attending physician: Brandee Starks MD Time Spent in preparation of Discharge (in minutes): 30 Hospital Course - Lab Results Lab Results: Most Recent Lab Values WBC 6.8 K/uL (4.8-10.8) 07/12/16 11:31 RBC 4.00 Mil/uL (4.40-5.90) L 07/12/16 11:31 Hgb 11.4 g/dL (12.0-18.0) L 07/12/16 11:31 Hct 35.1 % (35.0-51.0) 07/12/16 11:31 MCV 87.8 fL (80.0-94.0) 07/12/16 11:31 MCH 28.4 pg (27.0-31.0) 07/12/16 11:31 MCHC 32.4 g/dL (33.0-37.0) L 07/12/16 11:31 RDW 15.6 % (11.5-14.5) H 07/12/16 11:31 Plt Count 169 K/uL (130-400) 07/12/16 11:31 MPV 7.0 fL (7.2-11.7) L 07/12/16 11:31 Neut % (Auto) 58.2 % (50.0-75.0) 07/12/16 11:31 Lymph % (Auto) 17.4 % (20.0-40.0) L 07/12/16 11:31 [place] % (Auto) 15.2 % (0.0-10.0) H 07/12/16 11:31 Eos % (Auto) 8.2 % (0.0-4.0) H 07/12/16 11:31 Baso % (Auto) 1.0 % (0.0-2.0) 07/12/16 11:31 Neut # 3.9 K/uL (1.8-7.0) 07/12/16 11:31 Lymph # 1.2 K/uL (1.0-4.3) 07/12/16 11:31 Rosebud # 1.0 K/uL (0.0-0.8) H 07/12/16 11:31 Eos # 0.6 K/uL (0.0-0.7) 07/12/16 11:31 Baso # 0.1 K/uL (0.0-0.2) 07/12/16 11:31 PT 11.7 SECONDS (9.7-12.2) 07/07/16 16:03 INR 1.0 07/07/16 16:03 APTT 35 SECONDS (21-34) H 07/07/16 16:03 Sodium 137 mmol/L (132-148) 07/12/16 11:31 Potassium 4.6 mmol/L (3.6-5.2) 07/12/16 11:31 Chloride 92 mmol/L (98-107) L 07/12/16 11:31 Carbon Dioxide 24 mmol/L (22-30) 07/12/16 11:31 Anion Gap 26 (10-20) H 07/12/16 11:31 BUN 67 mg/dL (9-20) H 07/12/16 11:31 Creatinine 18.5 MG/DL (0.8-1.5) H* 07/12/16 11:31 Est GFR ( Amer) 4 07/12/16 11:31 Est GFR (Non-Af Amer) 3 07/12/16 11:31 Random Glucose 104 mg/dL (75-110) 07/12/16 11:31 Calcium 10.6 mg/dl (8.6-10.4) H 07/12/16 11:31 Total Bilirubin 0.7 mg/dL (0.2-1.3) 07/08/16 07:15 AST 40 U/L (17-59) 07/08/16 07:15 ALT 75 U/L (21-72) H D 07/08/16 07:15 Alkaline Phosphatase 161 U/L (38-126) H 07/08/16 07:15 Total Creatine Kinase 22 U/L (55-170) L 07/11/16 07:58 CK-MB (Mass) 0.33 ng/mL (0.0-3.38) 07/11/16 07:58 Troponin I, Quant 0.0170 ng/mL (0.00-0.120) 07/11/16 07:58 Total Protein 6.1 g/dL (6.3-8.3) L 04/09/17 07:15 Albumin 3.6 g/dL (3.5-5.0) 07/08/16 07:15 Globulin 2.5 gm/dL (2.2-3.9) 07/08/16 07:15 Albumin/Globulin Ratio 1.4 (1.0-2.1) 07/08/16 07:15 Alcohol, Quantitative < 10 mg/dl (0-10) 07/07/16 16:03 - Hospital Course Hospital Course: PT. ADMITTED AFTER CARDIAC CARREST AFTER SNORTING 2 PERCOCETS CRUSHED. CPR WAS DONE WITH EPI AND NARCAN. PT. WOKE UP WITH FULL CEREBRAL FUNCTION. PT. CURRENTLY C/O ATYPICAL CP SEC TO CHEST COMPRESSION. 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 NO OTHER CARDIAC DISEASES IN PAST PT WAS OBSERVED IN HOSP. THERE WAS NO FURTHER ANY [id number] PROBLEMS HAD CP SEC TO CHEST COMPRESSION TNI WERE NEG PT D/C HOME COUNSELLED TO F/U WITH PSYCH ADDENDUM DUE TO INS. REGULATION AND AUTHORIZATIONS PT WAS DISCHARGED NEXT DAY Discharge Exam - Head Exam Head Exam: ATRAUMATIC, NORMAL INSPECTION Discharge Plan - Follow Up Plan Condition: GOOD Disposition: REHAB FACILITY/REHAB UNIT Instructions: Continuous Ambulatory Peritoneal Dialysis (DC), Continuous Ambulatory Peritoneal Dialysis (GEN), Peritoneal Dialysis Catheter Care (DC), Opioid Overdose (DC), Opioid Overdose (GEN) Additional Instructions: seek emergency treatment if with persistent chest pain and shortness of breath . continue peritoneal dialysis as ordered by your supervisor/port director . follow up with your PMD .as per dr starks's note , ff up psychiatrist as outpt .Continue all current medications and use own machine for peritoneal dialysis. Referrals: Brandee Starks MD [Staff Provider] -
[2016-07-12] MEDS: Docusate-Senna 50 mg-8.6 mg Tab PO SCH (21:50)
[2016-07-13 08:37] VITALS: O2SAT 98
[2016-07-13] MEDS: Home Med 1 UNIT PO SCH ×2 (10:00→17:32)
[2016-07-13] MEDS: Multivitamin Vitamin B Complex (Nephro-Vite) Tab PO SCH (10:17)
[2016-07-13] MEDS: Pantoprazole 20 mg EC Tab PO SCH (10:18)
[2016-07-13] MEDS: NIFEdipine 90 mg ER Tab PO SCH (10:18)
--- NOTE | 2016-07-13 12:32 | CP.PCM.PN ---
Subjective - Date & Time of Evaluation Date of Evaluation: 07/13/16 Time of Evaluation: 12:29 - Subjective Subjective: c/o dizziness BP has been low- need to reduce BP meds PD going well Ca elevated- to check PTH- unless discharged No n, v, SOB, diarrhea. Same compression-induced CPs Objective - Vital Signs/Intake and Output Vital Signs (last 24 hours): Temp Pulse Resp BP Pulse Ox 97.7 F 67 20 120/72 98 07/13/16 08:36 07/13/16 08:36 07/13/16 08:36 07/13/16 10:16 07/13/16 08:36 - Medications Medications: Current Medications Amitriptyline HCl (Elavil) 25 mg PO HS [facility] Last Admin: 07/12/16 21:50 Dose: 25 mg Carvedilol (Coreg) 25 mg PO BID [facility] Last Admin: 07/13/16 10:16 Dose: 25 mg Clonidine HCl (Catapres) 0.2 mg PO HS [facility] Last Admin: 07/12/16 21:56 Dose: Not Given Docusate Sodium (Colace) 100 mg PO HS [facility] Last Admin: 07/12/16 21:50 Dose: 100 mg Epoetin Serjio (Procrit) 4,000 unit SC MWF [facility] Last Admin: 07/11/16 10:31 Dose: 4,000 unit Gabapentin (Neurontin) 100 mg PO Q12 [facility] Last Admin: 07/13/16 10:16 Dose: 100 mg Home Med (Home Med) 3 unit PO TID [facility] Last Admin: 07/13/16 10:00 Dose: Not Given Losartan Potassium (Cozaar) 100 mg PO DAILY [facility] Last Admin: 07/13/16 10:16 Dose: 100 mg Nifedipine (Procardia Xl) 90 mg PO DAILY [facility] Last Admin: 07/13/16 10:18 Dose: 90 mg Pantoprazole Sodium (Protonix Ec Tab) 20 mg PO DAILY [facility] Last Admin: 07/13/16 10:18 Dose: 20 mg Senna/Docusate Sodium (Senokot S 50 Mg-8.6 Mg) 1 tab PO HS [facility] Last Admin: 07/12/16 21:50 Dose: 1 tab Tramadol HCl (Ultram) 50 mg PO Q8H PRN PRN Reason: pain Last Admin: 07/13/16 05:29 Dose: 50 mg Vitamin B Complex/Vit C/Folic Acid (Nephro-Phil) 1 tab PO DAILY [facility] Last Admin: 07/13/16 10:17 Dose: 1 tab - Labs Labs: 07/12/16 11:31 07/12/16 11:31 PT 11.7 SECONDS (9.7-12.2) 07/07/16 16:03 INR 1.0 07/07/16 16:03 APTT 35 SECONDS (21-34) H 07/07/16 16:03 - Constitutional Appears: No Acute Distress, Chronically Ill - Head Exam Head Exam: ATRAUMATIC, NORMAL INSPECTION - Eye Exam Eye Exam: EOMI, Normal appearance - Neck Exam Neck Exam: Normal Inspection. absent: Tenderness - Respiratory Exam Respiratory Exam: Clear to Ausculation Bilateral, NORMAL BREATHING PATTERN - Cardiovascular Exam Cardiovascular Exam: REGULAR RHYTHM, +S1 - GI/Abdominal Exam GI & Abdominal Exam: Soft. absent: Tenderness - Extremities Exam Extremities Exam: Normal Inspection. absent: Pedal Edema, Tenderness - Neurological Exam Neurological Exam: Awake, CN II-XII Intact - Skin Skin Exam: Dry, Warm Assessment and Plan (1) ESRD on peritoneal dialysis Status: Acute (2) Hypertension Status: Acute (3) Observed collapse due to cardiac arrest Status: Acute (4) Opioid overdose Status: Acute - Assessment and Plan (Free Text) Plan: Check PTH Decrease BP meds Same PD
[2016-07-13] MEDS: Epoetin Alfa 4000 UNIT/ML Inj SC SCH (13:00)
[2016-07-13 17:10] VITALS: BP 102/65; PULSE 64; RESP 20; TEMP 97.6
[2016-07-14] MEDS ORDERED: NIFEdipine 30 mg ER Tab PO SCH (10:00)
[2016-07-16] MEDS ORDERED: Epoetin Alfa 4000 UNIT/ML Inj SC SCH (09:00)
--- NOTE | 2016-07-19 08:41 | CARD ---
APPROVED REPORT EKG Measurement Heart [id number] <Conclusion> Normal sinus rhythm Left axis deviation Abnormal ECG
== END 2016-07-13 19:55 ==
LOC: C.ER 15:42 → C.9E 18:25 → C.5T 22:23 → OBSVTOIN 07-09 17:19 → INTOOBSV 07-09 17:19 → C.6T 07-13 00:53
PROVIDERS: ADMIT Internal Medicine Cardiovascular Disease; ATTEND Internal Medicine Cardiovascular Disease
PROC: HZ32ZZZ Individual Counseling for Substance Abuse Treatment, Cognitive-Behavioral (ICD-10-PCS; principal; 2016-07-11)
PROC: HZ36ZZZ Individual Counseling for Substance Abuse Treatment, Psychoeducation (ICD-10-PCS; 2016-07-11)
PROC: HZ59ZZZ Individual Psychotherapy for Substance Abuse Treatment, Supportive (ICD-10-PCS; 2016-07-11)
DX: T39.1X4A Poisoning by 4-Aminophenol derivatives, undetermined, initial encounter (principal); I46.8 Cardiac arrest due to other underlying condition; E85.9 Amyloidosis, unspecified; N18.6 End stage renal disease; I12.0 Hypertensive chronic kidney disease with stage 5 chronic kidney disease or end stage renal disease; Z99.2 Dependence on renal dialysis; G43.909 Migraine, unspecified, not intractable, without status migrainosus; F11.90 Opioid use, unspecified, uncomplicated; F32.9 Major depressive disorder, single episode, unspecified; F41.9 Anxiety disorder, unspecified
CPT/HCPCS: 36415; 70450; 71010; 71111; 71250; 80048; 80053; 84484; 85025; 85610; 85730; 93005; 97110; 97116; 97162; 97530; 99285; G0378; G0480; G8978; G8979; J0885